=== PATIENT | female | born 1975 | race Asian ===

== ENCOUNTER → 2017-02-11 | Outpatient (CLI) | payer OTHER | LOC: LAB SRH 16:37 | DX: N91.2 Amenorrhea, unspecified (principal) | CPT/HCPCS: 90004; 90074; 90078; 90261; 90364; 90599; 90600; 90605; 90606; 90710; 90851; 91996; 92863; 93140; 98270; 98480; 99777 ==

== ENCOUNTER → 2017-02-11 | Outpatient (CLI) | payer OTHER ==
--- NOTE | 2017-02-11 16:48 | DIAGNOSTIC IMAGING REPORT ---
PROCEDURE: US OB 1ST TRIMESTER W/TRANSVAG INDICATION: VIABILITY TECHNIQUE: Navarro scale, color, and spectral Doppler transabdominal and endovaginal sonographic images of the first trimester gravid uterus were obtained. COMPARISON: None. FINDINGS: TRANSABDOMINAL SCANS: The gravid uterus is anteverted in position and contains a fundal gestational sac with a moderate decidual response. No perigestational hemorrhage. The cervix is closed and measures about 3.3 cm in length. parts are identified. Focal anterior lower uterine segment myometrial hypo echogenicity measuring about 10 mm without hypervascularity. TRANSVAGINAL SCANS: A pole is present with an average crown-rump length of 16.7 mm which corresponds to a 8 weeks 1 day gestation. Yolk sac was identified. No perigestational hemorrhage. There is detectable cardiac activity at a rate of 162 beats per minute. There is mild internal vascularity to a mildly complex hypoechoic mass in the anterior lower uterine segment measuring 11 by 8 x 11 mm. Maternal right ovary measures 3.7 x 1.8 x 2.1 cm and demonstrates normal follicular echotexture and vascularity. The left ovary measures 2.7 x 2.9 x 3.8 cm and contains of 2.0 cm corpus luteum. There is a trace amount of free fluid in the cul-de-sac. IMPRESSION: 1. Single living intrauterine with gestational age of 8 weeks 1 day and estimated due date of 09/22/2017 2. Closed cervix and no perigestational hemorrhage. 3. 11 mm anterior lower segment myometrial mass likely a small fibroid.
== END ==
LOC: US SRH 15:30
DX: Z34.91 Encounter for supervision of normal pregnancy, unspecified, first trimester (principal); Z3A.08 8 weeks gestation of pregnancy